=== PATIENT | female | born 1940 | race Caucasian/White ===

== ENCOUNTER → 2025-02-22 08:05 | Outpatient (REF) | payer OTHER, SELFPAY | LOC: HWRAD 08:05 | PROVIDERS: ATTENDING PHYSICIAN Family Medicine | DX: M81.0 Age-related osteoporosis without current pathological fracture (principal) | CPT/HCPCS: 77080 ==

== ENCOUNTER 2025-03-16 07:15 | Outpatient (RCR) | payer SELFPAY | END 2025-03-16 23:59 | disposition home or self-care (01) | LOC: ROT 07:15 | PROVIDERS: ATTENDING PHYSICIAN Family Medicine | DX: Z02.4 Encounter for examination for driving license (principal) ==